=== PATIENT | female | born 1985 | race Two or more races ===

== ENCOUNTER 2016-07-22 15:06 | Outpatient (CLI) | payer MEDICAID | END 2016-07-22 15:53 | disposition home or self-care (01) | LOC: LC 15:06 | PROVIDERS: ATTEND Obstetrics & Gynecology | PROC: 4A1HXCZ Monitoring of Products of Conception, Cardiac Rate, External Approach (ICD-10-PCS; principal; 2016-07-22) | DX: Z34.93 Encounter for supervision of normal pregnancy, unspecified, third trimester (principal); Z36 Encounter for antenatal screening of mother; Z3A.37 37 weeks gestation of pregnancy | CPT/HCPCS: 59025 ==

== ENCOUNTER 2016-07-30 17:27 | Outpatient (CLI) | payer MEDICAID ==
--- NOTE | 2016-07-30 18:00 | L&D Flow Sheet ---
LD Flowsheet Datetime Report Generated by CPN: 07/30/2016 18:00 Datetime: 07/30/2016 17:54 Vital Signs NBP Sys/Randi/Mean (mmHg): 129 (QS system process) : 64 (QS system process) : 88 (QS system process) Pulse: 86 (QS system process) Communication LaborFlag: Antepartum (QS system process) Datetime: 07/30/2016 17:36 Patient Care I/O Interventions: Up to BR (Leoncio Farrell RN) Patient Care Comments: Patient to Labor and Delivery from [facility] by Jennie Momin for Pre-Eclampsia workup for elevated BP in office today 140's/80's with 10lb weight gain in one week. Orders for repeat NST and Pre-E labs, serial blood pressures, UA, UDS. (Leoncio Farrell RN)
[2016-07-30 18:29] LABS: APPEARANCE,URINE SLIGHTLY-CLOUDY; BILIRUBIN,URINE NEGATIVE (NEGATIVE); GLUCOSE, URINE >=500 mg/dL (NEGATIVE); KETONES,URINE TRACE mg/dL (NEGATIVE); LEUKOCYTE ESTERASE,URINE NEGATIVE (NEGATIVE); NITRITE,URINE NEGATIVE (NEGATIVE); PROTEIN,URINE NEGATIVE (NEGATIVE); URINE SPECIFIC GRAVITY 1.011; UROBILINOGEN,URINE NEGATIVE mg/dL (<2.0)
[2016-07-30 18:41] LABS: URINE BARBITURATES SCREEN NEGATIVE; URINE METHADONE SCREEN NEGATIVE; URINE OPIATES LOW NEGATIVE; URINE PHENCYCLIDINE SCREEN NEGATIVE
[2016-07-30 19:01] LABS: ABSOLUTE EOSINOPHILS # (AUTO) 0.1 10^3/uL (0.0-0.6); ABSOLUTE LYMPHOCYTES (AUTO) 1.4 10^3/uL (0.5-4.7); ABSOLUTE MONOCYTES (AUTO) 0.6 10^3/uL (0.1-1.4); ABSOLUTE NEUT (AUTO) 5.5 10^3/uL (1.7-8.2); BASOPHILS % (AUTO) 0.5 % (0-2); HEMATOCRIT 30.3 % (36.0-47.0); HEMOGLOBIN 9.9 g/dL (12.0-15.5); HGB HCT DIFFERENCE -0.6; LYMPHOCYTES % (AUTO) 18.5 % (13-45); MEAN CORPUSCULAR HEMOGLOBIN 25.1 pg (27.0-33.4); MEAN CORPUSCULAR HGB CONC 32.6 g/dL (32.0-36.0); MEAN CORPUSCULAR VOLUME 77 fl (80-97); MONOCYTES % (AUTO) 8.4 % (3-13); RED BLOOD COUNT 3.93 10^6/uL (3.72-5.28); RED CELL DISTRIBUTION WIDTH 15.4 % (11.5-14.0); SEGMENTED NEUTROPHILS % (AUTO) 71.6 % (42-78); WHITE BLOOD COUNT 7.7 10^3/uL (4.0-10.5)
--- NOTE | 2016-07-30 19:07 | Non Stress Test Report ---
Non Stress Test Datetime Report Generated by CPN: 07/30/2016 19:07 DEMOGRAPHIC EGA NST: 38.1 INDICATION Indication for Study: Gestational Hypertension; Ordered by Provider MONITORING Monitor Explained: Monitor Explained; Test Explained; Patient Verbalized Understanding Time on Monitor: 07/30/2016 17:50 Time off Monitor: 07/30/2016 18:27 NST Duration: 37 NST INTERVENTIONS NST Interventions: None Physician Notified NST: [place] BABY A: [id number] BABY A Movement : Present Contraction Frequency : none FHR Baseline : 140 Accelerations : 15X15 Decelerations : None Variability : Moderate 6-25bpm NST Review: Meets Criteria for Reactive NST NST Review and Verified By : S. Camp RNC NST Results: Reactive NST COMMENTS NST Comments: See flowsheet for VS. NST REPORT Report Trigger: Send Report (Annotations: Data stored by CPN on behalf of user)
[2016-07-30 19:09] LABS: ALANINE AMINOTRANSFERASE 24 U/L (9-52); ALBUMIN 3.2 g/dL (3.5-5.0); ALKALINE PHOSPHATASE 124 U/L (38-126); ANION GAP 10 (5-19); ASPARTATE AMINO TRANSFERASE 15 U/L (14-36); BILIRUBIN,TOTAL 0.5 mg/dL (0.2-1.3); BLOOD UREA NITROGEN 4 mg/dL (7-20); CALCIUM 9.1 mg/dL (8.4-10.2); CARBON DIOXIDE 24 mmol/L (22-30); CHLORIDE 103 mmol/L (98-107); CREATININE RESULT 0.52 mg/dL (0.52-1.25); GLUCOSE 199 mg/dL (75-110); LDH 393 U/L (313-618); POTASSIUM 3.8 mmol/L (3.6-5.0); SODIUM 137.2 mmol/L (137-145); TOTAL PROTEIN 5.9 g/dL (6.3-8.2); URIC ACID 4.5 mg/dL (2.5-6.2)
--- NOTE | 2016-07-30 20:00 | L&D Flow Sheet ---
LD Flowsheet Datetime Report Generated by CPN: 07/30/2016 20:00 Datetime: 07/30/2016 19:53 NBP Sys/Randi/Mean (mmHg): 138 (QS system process) : 72 (QS system process) : 99 (QS system process) Pulse: 92 (QS system process) LaborFlag: Antepartum (QS system process) Datetime: 07/30/2016 19:37 NBP Sys/Randi/Mean (mmHg): 117 (QS system process) : 58 (QS system process) : 84 (QS system process) Pulse: 85 (QS system process) LaborFlag: Antepartum (QS system process) Datetime: 07/30/2016 19:22 NBP Sys/Randi/Mean (mmHg): 117 (QS system process) : 56 (QS system process) : 78 (QS system process) Pulse: 85 (QS system process) LaborFlag: Antepartum (QS system process) Datetime: 07/30/2016 19:15 Monitor Mode: External; Palpation (Leoncio Farrell RN) Frequency (min): none/denies (Leoncio Farrell RN) Resting Tone (Palpate): Relaxed (Leoncio Farrell RN) Monitor Mode: External US (Leoncio Farrell RN) FHR Baseline Rate : 145 (Leoncio Farrell RN) Variability: Moderate 6-25 bpm (Leoncio Farrell RN) Accelerations: 15X15 (Leoncio Farrell RN) Decelerations: None (Leoncio Farrell RN) Communication: RN at Bedside; RN Reviewed Strip (Leoncio Farrell RN) Communication Comments: Report to Lurdes De Jesus RN, care relinquished at this time. (Leoncio Farrell RN) Datetime: 07/30/2016 19:07 NBP Sys/Randi/Mean (mmHg): 121 (QS system process) : 57 (QS system process) : 82 (QS system process) Pulse: 77 (QS system process) Communication Comments: Awaiting lab results. (Leoncio Farrell RN) LaborFlag: Antepartum (QS system process) Datetime: 07/30/2016 18:53 Monitor Interventions for FHR: Ultrasound Adjusted (Leoncio Farrell RN) Communication: RN at Bedside (Leoncio Farrell RN) Datetime: 07/30/2016 18:52 NBP Sys/Randi/Mean (mmHg): 118 (QS system process) : 56 (QS system process) : 81 (QS system process) Pulse: 88 (QS system process) LaborFlag: Antepartum (QS system process) Datetime: 07/30/2016 18:45 Monitor Mode: External; Palpation (Leoncio Bud, RN) Frequency (min): none/ pt denies (Leoncio Bud, RN) Resting Tone (Palpate): Relaxed (Leoncio Bud, RN) Monitor Mode: External US (Leoncio Bud, RN) FHR Baseline Rate : 140 (Leoncio Bud, RN) Variability: Moderate 6-25 bpm (Leoncio Bud, RN) Accelerations: 15X15 (Leoncio Bud, RN) Decelerations: None (Leoncio Bud, RN) Communication: RN at Bedside; RN Reviewed Strip (Leoncio Stevenseet, RN) Datetime: 07/30/2016 18:37 NBP Sys/Ranid/Mean (mmHg): 113 (QS system process) : 56 (QS system process) : 79 (QS system process) Pulse: 88 (QS system process) LaborFlag: Antepartum (QS system process) Datetime: 07/30/2016 18:23 Provider Reviewed Strip: Yes (Leoncio Farrell RN) Notification Reason: Status Update; Status; Lab/Diagnostic Study (Leoncio Farrell RN) Communication Comments: Dr Oleary updated on pt; hx, vs, complaint of swelling BLE and 10lb weight gain in 1 week. BP in office, labs pending. No orders obtained. (Leoncio Farrell RN) Datetime: 07/30/2016 18:22 NBP Sys/Randi/Mean (mmHg): 113 (QS system process) : 55 (QS system process) : 76 (QS system process) Pulse: 91 (QS system process) LaborFlag: Antepartum (QS system process) Datetime: 07/30/2016 18:15 Monitor Mode: External; Palpation (Leoncio Farrell RN) Frequency (min): none/ pt denies (Leoncio Farrell RN) Resting Tone (Palpate): Relaxed (Leoncio Farrell RN) Monitor Mode: External US (Leoncio Farrell RN) FHR Baseline Rate : 140 (Leoncio Farrell RN) Variability: Moderate 6-25 bpm (Leoncio Farrell RN) Accelerations: 15X15 (Leoncio Farrell RN) Decelerations: None (Leoncio Farrell RN) Comments: Broken tracing/ RN adjusting/ Difficult to obtain continuous fht d/t maternal habitus (Leoncio Farrell RN) Communication: RN at Bedside; RN Reviewed Strip (Leoncio Farrell RN) Datetime: 07/30/2016 18:11 IV/Blood Work: Labs Drawn (Leoncio Bud, RN) Datetime: 07/30/2016 18:07 NBP Sys/Randi/Mean (mmHg): 126 (QS system process) : 60 (QS system process) : 86 (QS system process) Pulse: 84 (QS system process) LaborFlag: Antepartum (QS system process) Datetime: 07/30/2016 18:06 Monitor Interventions for FHR: Ultrasound Adjusted (Leoncio Farrell RN) Communication: RN at Bedside (Leoncio Farrell RN)
== END 2016-07-30 21:41 | disposition home or self-care (01) ==
LOC: LC 17:27
PROVIDERS: ATTEND Specialist
PROC: 4A1HXCZ Monitoring of Products of Conception, Cardiac Rate, External Approach (ICD-10-PCS; principal; 2016-07-30)
DX: O13.3 Gestational [pregnancy-induced] hypertension without significant proteinuria, third trimester (principal); Z3A.38 38 weeks gestation of pregnancy
CPT/HCPCS: 36415; 80053; 80307; 81001; 82962; 83615; 84550; 85025

== ENCOUNTER 2016-08-05 05:04 | Inpatient (IN) | payer MEDICAID ==
[2016-08-04 13:26] LABS: ABSOLUTE EOSINOPHILS # (AUTO) 0.1 10^3/uL (0.0-0.6); ABSOLUTE LYMPHOCYTES (AUTO) 1.6 10^3/uL (0.5-4.7); ABSOLUTE MONOCYTES (AUTO) 0.7 10^3/uL (0.1-1.4); ABSOLUTE NEUT (AUTO) 6.2 10^3/uL (1.7-8.2); BASOPHILS % (AUTO) 0.2 % (0-2); EOSINOPHILS % (AUTO) 0.8 % (0-6); HEMATOCRIT 31.2 % (36.0-47.0); HEMOGLOBIN 10.4 g/dL (12.0-15.5); LYMPHOCYTES % (AUTO) 18.3 % (13-45); MEAN CORPUSCULAR HEMOGLOBIN 24.9 pg (27.0-33.4); MEAN CORPUSCULAR HGB CONC 33.4 g/dL (32.0-36.0); MEAN CORPUSCULAR VOLUME 75 fl (80-97); MONOCYTES % (AUTO) 7.7 % (3-13); RED BLOOD COUNT 4.19 10^6/uL (3.72-5.28); RED CELL DISTRIBUTION WIDTH 15.2 % (11.5-14.0); WHITE BLOOD COUNT 8.5 10^3/uL (4.0-10.5)
[2016-08-04 13:32] LABS: APPEARANCE,URINE SLIGHTLY-CLOUDY; BILIRUBIN,URINE NEGATIVE (NEGATIVE); GLUCOSE, URINE NEGATIVE (NEGATIVE); KETONES,URINE 80 mg/dL (NEGATIVE); LEUKOCYTE ESTERASE,URINE NEGATIVE (NEGATIVE); NITRITE,URINE NEGATIVE (NEGATIVE); PROTEIN,URINE 30 mg/dL (NEGATIVE); URINE SPECIFIC GRAVITY 1.014; UROBILINOGEN,URINE NEGATIVE mg/dL (<2.0)
[2016-08-04 14:02] LABS: URINE BARBITURATES SCREEN NEGATIVE; URINE METHADONE SCREEN NEGATIVE; URINE OPIATES LOW NEGATIVE; URINE PHENCYCLIDINE SCREEN NEGATIVE
[~2016-08-05 05:04] MED LIST: CEFAZOLIN 2 GM/D5W RTU 2 GM/50 ML RTUPB IV PRN; CITRIC ACID/SODIUM CITRATE ORAL SOLN 15 ML UDCUP PO PRN; LACTATED RINGERS 1000 ML IV PRN; LIDOCAINE 0.5% INJ-PF (5 MG/ML) 50 ML SDV SUBCUT PRN; RINGERS SOLUTION,LACTATED 1,500 ML IV PRN
[2016-08-05] MEDS ORDERED: OXYTOCIN 10 UNIT/ML VIAL ONE (07:08)
[2016-08-05] MEDS ORDERED: OXYTOCIN/NORMAL SALINE 20 UNIT/1,000 ML RTUINJ ONE (07:09)
[2016-08-05] MEDS ORDERED: MIDAZOLAM 2 MG/2 ML INJ ONE ×2 (07:09)
[2016-08-05] MEDS ORDERED: FENTANYL CITRATE INJ/PF 100 MCG/2 ML AMPUL ONE (07:09)
[2016-08-05] MEDS ORDERED: ACETAMINOPHEN 100 ML IV ONE (07:10)
[2016-08-05] MEDS ORDERED: EPHEDRINE SULFATE INJ 50 MG/1 ML AMPULE ONE (07:10)
[2016-08-05] MEDS ORDERED: FENTANYL CITRATE INJ/PF 100 MCG/2 ML AMPUL IV PRN ×3 (08:10)
[2016-08-05] MEDS ORDERED: PROMETHAZINE HCL INJ 25 MG/1 ML VIAL IV PRN ×3 (08:10→11:02)
[2016-08-05] MEDS ORDERED: OXYCODONE-ACETAMINOPHEN 5-325 MG TABLET PO PRN ×2 (08:10)
[2016-08-05] MEDS ORDERED: DIPHENHYDRAMINE HCL 50 MG/ML VIAL IV PRN (08:10)
[2016-08-05] MEDS ORDERED: MEPERIDINE HCL/PF INJ 25 MG/1 ML DISP.SYRIN IV PRN (08:10)
--- NOTE | 2016-08-05 09:09 | Brief Operative Note ---
BRIEF OPERATIVE REPORT DATE OF SURGERY: 08/05/16 TIME OF SURGERY: 08:30 PREOPERATIVE DIAGNOSIS: 39 week, GDM, Prior Section POSTOPERATIVE DIAGNOSIS: same,delivered SURGEON: DAJA JAY FINDINGS: viable female ap 6/9, wt 8-13. spontaneous intact placenta 3vc , normal anatomy COMPLICATIONS: none ESTIMATED BLOOD LOSS: 600cc TISSUE REMOVED OR ALTERED: placenta TECHNICAL PROCEDURE: Repeat Low Transverse Section
[2016-08-05] MEDS ORDERED: MORPHINE SULFATE 10 MG/ML INJ ONE (09:25)
[2016-08-05] MEDS: MORPHINE SULFATE 10 MG/ML INJ IV PRN ×3 (09:27→10:59)
--- NOTE | 2016-08-05 10:00 | L&D Flow Sheet ---
LD Flowsheet Datetime Report Generated by CPN: 08/05/2016 10:00 Datetime: 08/05/2016 09:55 Pulse: 59 (QS system process) SpO2 (%): 100 (QS system process) Datetime: 08/05/2016 09:50 NBP Sys/Randi/Mean (mmHg): 122 (QS system process) : 58 (QS system process) : 83 (QS system process) Pulse: 70 (QS system process) Pulse: 57 (QS system process) SpO2 (%): 99 (QS system process) Datetime: 08/05/2016 09:45 Pulse: 62 (QS system process) SpO2 (%): 100 (QS system process) Datetime: 08/05/2016 09:40 Pulse: 63 (QS system process) SpO2 (%): 100 (QS system process) Datetime: 08/05/2016 09:35 NBP Sys/Randi/Mean (mmHg): 116 (QS system process) : 58 (QS system process) : 84 (QS system process) Pulse: 64 (QS system process) Pulse: 71 (QS system process) SpO2 (%): 99 (QS system process) Datetime: 08/05/2016 09:30 Pulse: 80 (QS system process) SpO2 (%): 100 (QS system process) Datetime: 08/05/2016 09:25 Pulse: 65 (QS system process) SpO2 (%): 100 (QS system process) Pain Scale: 2 (Anahi Salazar RN) Pain Presence: Intermittent (Anahi Salazar RN) Pain Type: Dull (Anahi Salazar RN) Pain Location: Abdomen (Anahi Salazar RN) Pain Goal: 1 (Anahi Salazar RN) Datetime: 08/05/2016 09:20 NBP Sys/Randi/Mean (mmHg): 121 (QS system process) : 59 (QS system process) : 84 (QS system process) Pulse: 84 (QS system process) Pulse: 86 (QS system process) SpO2 (%): 100 (QS system process) Datetime: 08/05/2016 09:15 Pulse: 72 (QS system process) SpO2 (%): 98 (QS system process) Datetime: 08/05/2016 09:10 Pulse: 76 (QS system process) SpO2 (%): 100 (QS system process) Datetime: 08/05/2016 09:05 NBP Sys/Randi/Mean (mmHg): 115 (QS system process) : 59 (QS system process) : 82 (QS system process) Pulse: 75 (QS system process) Pulse: 74 (QS system process) SpO2 (%): 100 (QS system process) Datetime: 08/05/2016 09:00 Pulse: 78 (QS system process) SpO2 (%): 98 (QS system process) Pain Scale: 0 (Anahi Salazar RN) Pain Presence: None/Denies (Anahi Salazar RN) Pain Type: N/A (Anahi Salazar RN) Pain Goal: 1 (Anahi Salazar RN) Pain Relief Measures: Comfort Measures (Anahi Salazar RN) Datetime: 08/05/2016 08:55 Pulse: 75 (QS system process) SpO2 (%): 98 (QS system process) Datetime: 08/05/2016 08:50 NBP Sys/Randi/Mean (mmHg): 110 (QS system process) : 55 (QS system process) : 77 (QS system process) Pulse: 86 (QS system process) SpO2 (%): 98 (QS system process) Temperature (F): 97.3 (Anahi Salazar RN) Temperature (C): 36.3 (QS system process) Temperature Route: Oral (Anahi Salazar RN) Datetime: 08/05/2016 08:49 Stage of : Recovery (Anahi Salazar, RN) Datetime: 08/05/2016 08:47 Stage of : Recovery (Anahi Martin, RN) Datetime: 08/05/2016 08:42 Stage of : Recovery (Anahi Martin, RN) Datetime: 08/05/2016 08:40 Stage of : Recovery (Anahi Martin, RN) Datetime: 08/05/2016 08:35 Stage of : Recovery (Anahi Martin, RN) Datetime: 08/05/2016 08:30 Stage of : Recovery (Anahi Martin, RN) Datetime: 08/05/2016 05:38 Bedside Blood Glucose: 98 (QS system process) LaborFlag: Antepartum (QS system process)
[2016-08-05] MEDS ORDERED: RINGERS SOLUTION,LACTATED 1,000 ML IV PRN (11:02)
[2016-08-05] MEDS ORDERED: MEASLES,MUMPS&RUBELLA VACC/PF 0.5 ML VIAL SUBCUT PRN (11:02)
[2016-08-05] MEDS ORDERED: ACETAMINOPHEN 325 MG TABLET PO PRN (11:02)
[2016-08-05] MEDS ORDERED: DIPH/PERTUSS(ACELL)/TETANUS VAC/PF 0.5 ML SYR (>=10YO) IM PRN (11:02)
[2016-08-05] MEDS ORDERED: OXYTOCIN/NORMAL SALINE 1,000 ML IV PRN (11:02)
[2016-08-05] MEDS ORDERED: HYDROMORPHONE HCL INJ/PF 2 MG/ML AMPULE IV PRN (11:02)
[2016-08-05] MEDS ORDERED: DOCUSATE SODIUM 100 MG CAPSULE PO ONE (12:00)
[2016-08-05] MEDS ORDERED: PRENATAL VITAMIN W-O CA NO5/FE FUMARATE/FA CAPSULE PO ONE (12:00)
[2016-08-05] MEDS ORDERED: KETOROLAC TROMETHAMINE 60 MG/2 ML SDV ONE (13:13)
[2016-08-05] MEDS ORDERED: ONDANSETRON HCL INJ/PF 4 MG/2 ML SDV ONE (13:13)
[2016-08-05] MEDS: KETOROLAC TROMETHAMINE INJ/PF 30 MG/1 ML SDV IV SCH ×2 (15:18→21:25)
[2016-08-05] MEDS: DOCUSATE SODIUM 100 MG CAPSULE PO SCH (17:57)
[2016-08-05] MEDS ORDERED: RINGERS SOLUTION,LACTATED 500 ML IV PRN (18:51)
[2016-08-05] MEDS: OXYCODONE-ACETAMINOPHEN 5-325 MG TABLET PO PRN ×2 (18:56→22:47)
[2016-08-06] MEDS: SIMETHICONE 80 MG TAB.CHEW PO PRN ×3 (03:52→20:15)
[2016-08-06] MEDS: KETOROLAC TROMETHAMINE INJ/PF 30 MG/1 ML SDV IV SCH (05:07)
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
--- NOTE | 2016-08-06 06:01 | L&D Current Admission ---
Current Admit Datetime Report Generated by CPN: 08/06/2016 06:00 ADMISSION INFORMATION Chief Complaint: Dependant Edema (07/30/2016 17:36:Leoncio Farrell RN)
[2016-08-06 06:34] LABS: HEMATOCRIT 16.7 % (36.0-47.0); HGB HCT DIFFERENCE 0.1; MEAN CORPUSCULAR HEMOGLOBIN 24.9 pg (27.0-33.4); MEAN CORPUSCULAR HGB CONC 33.3 g/dL (32.0-36.0); MEAN CORPUSCULAR VOLUME 75 fl (80-97); RED BLOOD COUNT 2.24 10^6/uL (3.72-5.28); RED CELL DISTRIBUTION WIDTH 15.7 % (11.5-14.0); WHITE BLOOD COUNT 12.8 10^3/uL (4.0-10.5)
[2016-08-06 06:53] LABS: HEMOGLOBIN 5.6 g/dL (12.0-15.5)
[2016-08-06 07:35] LABS: ABSOLUTE LYMPHOCYTES (AUTO) 1.5 10^3/uL (0.5-4.7); ABSOLUTE MONOCYTES (AUTO) 0.9 10^3/uL (0.1-1.4); ABSOLUTE NEUT (AUTO) 8.9 10^3/uL (1.7-8.2); BASOPHILS % (AUTO) 0.2 % (0-2); EOSINOPHILS % (AUTO) 0.1 % (0-6); HEMATOCRIT 15.7 % (36.0-47.0); HGB HCT DIFFERENCE -0.1; LYMPHOCYTES % (AUTO) 12.9 % (13-45); MEAN CORPUSCULAR HEMOGLOBIN 25.1 pg (27.0-33.4); MEAN CORPUSCULAR HGB CONC 33.4 g/dL (32.0-36.0); MEAN CORPUSCULAR VOLUME 75 fl (80-97); RED BLOOD COUNT 2.09 10^6/uL (3.72-5.28); RED CELL DISTRIBUTION WIDTH 15.7 % (11.5-14.0); SEGMENTED NEUTROPHILS % (AUTO) 78.8 % (42-78); WHITE BLOOD COUNT 11.3 10^3/uL (4.0-10.5)
[2016-08-06 07:41] LABS: HEMOGLOBIN 5.2 g/dL (12.0-15.5)
[2016-08-06] MEDS ORDERED: ACETAMINOPHEN 325 MG TABLET PO PRN (08:36)
[2016-08-06] MEDS ORDERED: DIPHENHYDRAMINE HCL 25 MG CAPSULE PO PRN (08:37)
--- NOTE | 2016-08-06 09:01 | PDOC PROGRESS REPORT ---
Subjective-OB Subjective: Post Delivery Day: 31 year old. Problems with gas-not yet passing any gas. Problems breathing when she lays down. Physical Exam (OB) Vital Signs: Temp Pulse Resp BP Pulse Ox 98.7 F 101 H 18 124/63 100 08/06/16 07:55 08/06/16 07:55 08/06/16 07:55 08/06/16 07:55 08/06/16 07:55 Intake & Output 08/05/16 08/06/16 08/07/16 06:59 06:59 06:59 Output Total 0 Balance -2109 Weight 117.934 kg - Dressing Removed: No Incision: Dressing - Lochia Lochia Amount: Small 10-25 ml Lochia Color: Rubra/Red - Abdomen Description: Soft, Round Hernia Present: No Bowel Sounds: Normoactive Flatus Presence: Absent Stool: No Fundal Description: Firm, Midline Fundal Height: u/u - u/2 Objective-Diagnostic Laboratory: 08/06/16 07:28 08/04/16 08/04/16 08/04/16 12:02 12:20 12:20 WBC 8.5 RBC 4.19 Hgb 10.4 L Hct 31.2 L MCV 75 L MCH 24.9 L MCHC 33.4 RDW 15.2 H Plt Count 258 Seg Neutrophils % 73.0 Lymphocytes % 18.3 Monocytes % 7.7 Eosinophils % 0.8 Basophils % 0.2 Absolute Neutrophils 6.2 Absolute Lymphocytes 1.6 Absolute Monocytes 0.7 Absolute Eosinophils 0.1 Absolute Basophils 0.0 Urine Color YELLOW Urine Appearance SLIGHTLY-CLOUDY Urine pH 6.0 Ur Specific Gypsy 1.014 Urine Protein 30 H Urine Glucose (UA) NEGATIVE Urine Ketones 80 H Urine Blood NEGATIVE Urine Nitrite NEGATIVE Ur Leukocyte Esterase NEGATIVE Urine WBC (Auto) 2 Urine RBC (Auto) 1 Blood Type O POSITIVE Antibody Screen NEGATIVE 08/06/16 08/06/16 06:03 07:28 WBC 12.8 H 11.3 H RBC 2.24 L 2.09 L Hgb 5.6 L D 5.2 L Hct 16.7 L 15.7 L MCV 75 L 75 L MCH 24.9 L 25.1 L MCHC 33.3 33.4 RDW 15.7 H 15.7 H Plt Count 270 227 Seg Neutrophils % 78.8 H Lymphocytes % 12.9 L Monocytes % 8.0 Eosinophils % 0.1 Basophils % 0.2 Absolute Neutrophils 8.9 H Absolute Lymphocytes 1.5 Absolute Monocytes 0.9 Absolute Eosinophils 0.0 Absolute Basophils 0.0 Urine Color Urine Appearance Urine pH Ur Specific Gypsy Urine Protein Urine Glucose (UA) Urine Ketones Urine Blood Urine Nitrite Ur Leukocyte Esterase Urine WBC (Auto) Urine RBC (Auto) Blood Type Antibody Screen
[2016-08-06] MEDS: PRENATAL VITAMIN W-O CA NO5/FE FUMARATE/FA CAPSULE PO SCH (09:20)
[2016-08-06] MEDS: DOCUSATE SODIUM 100 MG CAPSULE PO SCH ×2 (09:20→17:15)
[2016-08-06] MEDS: IBUPROFEN 800 MG TABLET PO SCH ×3 (12:21→23:18)
[2016-08-06] MEDS: OXYCODONE-ACETAMINOPHEN 5-325 MG TABLET PO PRN ×3 (13:15→23:24)
[2016-08-06 17:09] LABS: HEMATOCRIT 21.3 % (36.0-47.0); HGB HCT DIFFERENCE 0.6; MEAN CORPUSCULAR HEMOGLOBIN 26.6 pg (27.0-33.4); MEAN CORPUSCULAR HGB CONC 34.1 g/dL (32.0-36.0); MEAN CORPUSCULAR VOLUME 78 fl (80-97); RED BLOOD COUNT 2.73 10^6/uL (3.72-5.28); RED CELL DISTRIBUTION WIDTH 17.1 % (11.5-14.0); WHITE BLOOD COUNT 10.9 10^3/uL (4.0-10.5)
[2016-08-06 17:22] LABS: HEMOGLOBIN 7.3 g/dL (12.0-15.5)
[2016-08-06] MEDS ORDERED: NA PHOS,M-B/NA PHOS,DI-BA (ADULT) 133 ML ENEMA PR PRN (21:16)
[2016-08-06] MEDS: MAGNESIUM HYDROXIDE SUSP 30 ML UDCUP PO PRN (21:33)
[2016-08-07] MEDS: OXYCODONE-ACETAMINOPHEN 5-325 MG TABLET PO PRN (03:57)
[2016-08-07] MEDS: SIMETHICONE 80 MG TAB.CHEW PO PRN ×2 (03:58→08:11)
[2016-08-07] MEDS: IBUPROFEN 800 MG TABLET PO SCH ×2 (05:49→12:54)
[2016-08-07] MEDS: DOCUSATE SODIUM 100 MG CAPSULE PO SCH (09:10)
[2016-08-07] MEDS: PRENATAL VITAMIN W-O CA NO5/FE FUMARATE/FA CAPSULE PO SCH (09:10)
--- NOTE | 2016-08-07 10:05 | PDOC DISCHARGE SUMMARY ---
Final Diagnosis Discharge Date: 08/07/16 - Final Diagnosis (1) Bipolar 1 disorder Is this a current diagnosis for this admission?: Yes (2) Delivery by elective caesarean section Is this a current diagnosis for this admission?: Yes (3) Insufficient antepartum care Is this a current diagnosis for this admission?: Yes Discharge Data - Discharge Medication Home Medications: Pnv95/Ferrous Fumarate/FA [ Caplet] 1 tab PO DAILY 07/30/16 Glyburide [Diabeta 2.5 mg Tablet] 2.5 mg PO DAILY 08/04/16 Reason(s) for Admission: Ceasarean Section-Repeat Procedures: NST Intrapartum Procedure(s): : Low Cervical, Transverse - Diagnosis Test Laboratory: Temp Pulse Resp BP Pulse Ox 98.4 F 109 H 17 139/83 H 100 08/07/16 08:22 08/07/16 08:22 08/07/16 07:31 08/07/16 08:22 08/07/16 08:22 08/04/16 08/04/16 08/06/16 12:02 12:20 06:03 RBC 4.19 2.24 L Hgb 10.4 L 5.6 L D Hct 31.2 L 16.7 L Urine Opiates Screen NEGATIVE 08/06/16 08/06/16 07:28 16:38 RBC 2.09 L 2.73 L Hgb 5.2 L 7.3 L D Hct 15.7 L 21.3 L Urine Opiates Screen - Discharge information/Instructions Discharge Activity: Activity As Tolerated, No Lifting Over 10 Pounds, Pelvic Rest, No tub bath Discharge Diet: Regular Disposition: HOME, SELF-CARE Follow up with: [facility] in: 7, Days
[2016-08-07] MEDS: MAGNESIUM HYDROXIDE SUSP 30 ML UDCUP PO PRN (10:21)
[2016-08-07 12:25] VITALS: BP 147/73
--- NOTE | 2016-09-15 22:24 | Operative Report ---
Operative Report DATE OF SURGERY: 08/05/16 PREOPERATIVE DIAGNOSIS: 39 week, GDM, Prior Section POSTOPERATIVE DIAGNOSIS: same,delivered OPERATION: Repeat Low Transverse Section SURGEON: DAJA JAY ANESTHESIA: Spinal TISSUE REMOVED OR ALTERED: placenta COMPLICATIONS: none ESTIMATED BLOOD LOSS: 600cc INTRAOPERATIVE FINDINGS: viable female infant ap 6/9, wt 8-13. spontaneous intact placenta 3vc, normal anatomy PROCEDURE: After appropriate consents had been obtained, the patient was taken to the operating room where regional anesthesia was placed without difficulty. The patient was prepped and draped in the normal sterile fashion in the dorsal supine position with a leftward tilt. Time out procedure was performed. Anesthesia was determined to be adequate and a pfannenstiel incision was made through the prior scar. The fascia was nicked in the midline then extended bilaterally with Baum scissors. The fascia was elevated and then the rectus muscles dissected off sharply. The rectus muscles were then in the midline and the peritonuem identified. The peritoneum was entered sharply and extended with good visualization of the bladder. Bladder blade was inserted and the bladder flap carefully dissected off the lower uterine segment. A transverse incision was made with the scalpel then extended bilaterally in an upward outward motion across the lower uterine segment. Amniotomy revealed clear fluid. The vertex was grasped and elevated easily through the incision followed by the remainder of the infant. The cord was doubly clamped and ligated. The infant was handed off the operative field to the waiting pediatric team. The placenta was then extracted manually intact. The uterus was exteriorized and cleansed of membranous tissue with a sponge on the fringing machine operator's hand. The uterine incision was then repaired using 0 vicryl in a running locked fashion. A second layer of the same suture was used to imbricate for hemastasis. The uterus was then returned to the abdomen and gutters were cleared of clots and debris. The fascial incision was closed with 0 vicryl in a running fashion to the midline. The subcutaneous layer was closed with 0 plain in a running stitch. the skin was closed with 4-0 monocryl in subcuticular running stitch. Sponge, lap and needle counts were correct. The patient was transferred to recovery in stable condition.
== END 2016-08-07 13:21 | disposition home or self-care (01) | DRG 765 ==
LOC: 2S 05:04
PROVIDERS: ADMIT Obstetrics & Gynecology; ATTEND Obstetrics & Gynecology
PROC: 10D00Z1 Extraction of Products of Conception, Low, Open Approach (ICD-10-PCS; principal; 2016-08-05 07:45)
PROC: 30233N1 Transfusion of Nonautologous Red Blood Cells into Peripheral Vein, Percutaneous Approach (ICD-10-PCS; 2016-08-06)
PROC: 3E0234Z Introduction of Serum, Toxoid and Vaccine into Muscle, Percutaneous Approach (ICD-10-PCS; 2016-08-07)
DX: O34.211 Maternal care for low transverse scar from previous cesarean delivery (principal); Z68.41 Body mass index [BMI] 40.0-44.9, adult; Z37.0 Single live birth; O24.425 Gestational diabetes mellitus in childbirth, controlled by oral hypoglycemic drugs; O99.343 Other mental disorders complicating pregnancy, third trimester; F31.9 Bipolar disorder, unspecified; O99.214 Obesity complicating childbirth; F20.9 Schizophrenia, unspecified; O99.824 Streptococcus B carrier state complicating childbirth; O99.334 Smoking (tobacco) complicating childbirth; F17.210 Nicotine dependence, cigarettes, uncomplicated; O09.33 Supervision of pregnancy with insufficient antenatal care, third trimester; Z3A.39 39 weeks gestation of pregnancy; Z23 Encounter for immunization
CPT/HCPCS: 1961; 36415; 36430; 59025; 80307; 81001; 82962; 85025; 85027; 86850; 86900; 86901; 86920; 90707; 90715; 94799; J0131; J0690; J1170; J1885; J2250; J2270; J2405; J2590; J3010; J3490; J7120; P9016

== ENCOUNTER 2017-11-20 13:06 | Emergency (ER) | payer OTHER ==
[2017-11-20 13:50] VITALS: BP 136/77
[2017-11-20] MEDS ORDERED: CYCLOBENZAPRINE HCL 10 MG TABLET PO ONE (15:18)
[2017-11-20] MEDS ORDERED: DEXAMETHASONE SOD PHOS INJ 10 MG/1 ML VIAL IM ONE (15:18)
[2017-11-20] MEDS ORDERED: KETOROLAC TROMETHAMINE 60 MG/2 ML SDV IM ONE (15:18)
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
== END 2017-11-20 16:32 | disposition home or self-care (01) ==
LOC: ER 13:06
DX: S20.219A Contusion of unspecified front wall of thorax, initial encounter (principal); M79.605 Pain in left leg; R51 Headache; M25.562 Pain in left knee; M25.511 Pain in right shoulder; M25.572 Pain in left ankle and joints of left foot; M79.672 Pain in left foot; V43.52XA Car driver injured in collision with other type car in traffic accident, initial encounter; F17.210 Nicotine dependence, cigarettes, uncomplicated
CPT/HCPCS: 99406; 99283; 96372; 73610; 71046; 73140; 73630; 73562; 73030; J1885; J1100